=== PATIENT | female | born 1935 | race Caucasian/White ===

== ENCOUNTER → 2017-06-20 | Outpatient (CLI) | payer MEDICARE, OTHER | END | disposition home or self-care (01) | LOC: CFH 11:50 | PROVIDERS: ATTEND Family Medicine | DX: M48.07 Spinal stenosis, lumbosacral region (principal); M51.27 Other intervertebral disc displacement, lumbosacral region; I70.213 Atherosclerosis of native arteries of extremities with intermittent claudication, bilateral legs | CPT/HCPCS: 72148 ==

== ENCOUNTER → 2017-08-22 | Outpatient (CLI) | payer MEDICARE, OTHER | END | disposition home or self-care (01) | LOC: CFH 10:29 | PROVIDERS: ATTEND Physician Assistant Surgical | DX: M48.061 Spinal stenosis, lumbar region without neurogenic claudication (principal); M51.37 Other intervertebral disc degeneration, lumbosacral region | CPT/HCPCS: 72120; 72131 ==

== ENCOUNTER → 2017-10-16 | Outpatient (CLI) | payer MEDICARE, OTHER | END | disposition home or self-care (01) | LOC: RAD 15:19 | PROVIDERS: ATTEND Neurological Surgery | DX: M43.16 Spondylolisthesis, lumbar region (principal); M54.5 Low back pain | CPT/HCPCS: 72220 ==

== ENCOUNTER → 2017-11-24 | Outpatient (CLI) | payer MEDICARE, OTHER | END | disposition home or self-care (01) | LOC: CFH 15:17 | PROVIDERS: ATTEND Neurological Surgery | DX: Z01.812 Encounter for preprocedural laboratory examination (principal); R79.1 Abnormal coagulation profile; M48.062 Spinal stenosis, lumbar region with neurogenic claudication | CPT/HCPCS: 71046; 93005 ==

== ENCOUNTER → 2017-11-27 | Outpatient (CLI) | payer MEDICARE, OTHER | END | disposition home or self-care (01) | LOC: CFH 13:51 | PROVIDERS: ATTEND Neurological Surgery | DX: Z13.820 Encounter for screening for osteoporosis (principal); M85.88 Other specified disorders of bone density and structure, other site | CPT/HCPCS: 77080 ==

== ENCOUNTER → 2017-12-18 | Outpatient (CLI) | payer MEDICARE, OTHER | END | disposition home or self-care (01) | LOC: CFH 14:47 | PROVIDERS: ATTEND Neurological Surgery | DX: M51.37 Other intervertebral disc degeneration, lumbosacral region (principal); M43.26 Fusion of spine, lumbar region | CPT/HCPCS: 72110 ==

== ENCOUNTER 2018-01-06 14:39 | Emergency (ER) | payer MEDICARE, OTHER ==
[~2018-01-06] VITALS: Ht 170.2 cm; Wt 73.0 kg
[2018-01-06 15:06] LABS: BASOPHILS # (AUTO) 0.06 x10^3/uL (0-0.1); BASOPHILS % (AUTO) 1 % (0-1); EOSINOPHILS % (AUTO) 0 % (1-7); LYMPHOCYTES % (AUTO) 13 % (22-44); MD NO; MEAN CORPUSCULAR HEMOGLOBIN 31.3 pg (27.0-34.8); MEAN CORPUSCULAR HGB CONC 33.9 g/dL (32.4-35.8); MEAN CORPUSCULAR VOLUME 92.2 fL (80-100); MEAN PLATELET VOLUME 7.3 fL (7.4-10.4); MONOCYTES # (AUTO) 1.17 x10^3/uL (0.2-0.8); MONOCYTES % (AUTO) 14 % (2-9); NEUTROPHILS # (AUTO) 5.91 x10^3/uL (1.8-6.8); NEUTROPHILS % (AUTO) 72 % (42-75); PLATELET COUNT 455 x10^3/uL (130-400); RED BLOOD COUNT 3.99 x10^6/uL (3.82-5.3); RED CELL DISTRIBUTION WIDTH 15.4 % (9.6-15.2)
[2018-01-06 15:16] LABS: ALBUMIN 3.3 g/dL (3.4-5.0); ANION GAP 10 mmol/L (5-15); CALCIUM 8.7 mg/dL (8.5-10.1); CHLORIDE 105 mmol/L (98-107); CREATININE 0.88 mg/dL (0.55-1.02)
[2018-01-06 16:12] LABS: MICROSCOPIC AUTO
[2018-01-06 16:13] LABS: CULTURE INDICATED? YES
[2018-01-06 17:44] VITALS: BP 126/78
== END 2018-01-06 17:46 | disposition home or self-care (01) ==
LOC: ED 15:32
DX: M54.5 Low back pain (principal); M47.896 Other spondylosis, lumbar region; N30.01 Acute cystitis with hematuria
CPT/HCPCS: 36415; 72110; 80048; 81001; 82040; 85025; 87077; 87086; 87186; 99285

== ENCOUNTER → 2018-02-13 | Outpatient (CLI) | payer MEDICARE, OTHER ==
[~2018-02-13] MED LIST: GADOBUTROL 7.5 MMOL/7.5 ML PFS ONE
== END | disposition home or self-care (01) ==
LOC: RAD 13:38
PROVIDERS: ATTEND Neurological Surgery
DX: S32.018D Other fracture of first lumbar vertebra, subsequent encounter for fracture with routine healing (principal); S22.000D Wedge compression fracture of unspecified thoracic vertebra, subsequent encounter for fracture with routine healing; M43.16 Spondylolisthesis, lumbar region; X58.XXXD Exposure to other specified factors, subsequent encounter
CPT/HCPCS: 72158; A9585; 99157

== ENCOUNTER 2018-02-27 12:37 | Day surgery (SDC) | payer MEDICARE, OTHER ==
[~2018-02-27] VITALS: Ht 170.2 cm; Wt 68.2 kg
[2018-02-27] MEDS ORDERED: SODIUM CHLORIDE 0.9% 1,000 ML IV SCH (13:12)
[2018-02-27 13:13] VITALS: BP 138/91
[2018-02-27] MEDS ORDERED: LIDOCAINE-MPF 1%, 5ML ONE ×2 (14:57→16:02)
[2018-02-27] MEDS ORDERED: OMNIPAQUE 180 MG/ML, 10ML VIAL ONE (17:20)
[2018-02-27] MEDS ORDERED: INSTRUCTION SEE COMMENTS XX PRN (17:30)
== END 2018-02-27 18:20 | disposition home or self-care (01) ==
LOC: OUT 12:37 → 4NOR 16:47 → OUT 18:20
PROVIDERS: ATTEND Neurological Surgery
DX: M48.56XA Collapsed vertebra, not elsewhere classified, lumbar region, initial encounter for fracture (principal); M54.5 Low back pain; Z85.51 Personal history of malignant neoplasm of bladder; Z79.899 Other long term (current) drug therapy; Z98.890 Other specified postprocedural states
CPT/HCPCS: 62284; 72132; Q9965; G0378

== ENCOUNTER 2018-03-06 16:48 | Emergency (ER) | payer MEDICARE, OTHER ==
[~2018-03-06] VITALS: Ht 170.2 cm; Wt 70.0 kg
--- NOTE | 2018-03-06 17:20 | NUR ---
late entry for 1719. first contact with pt. pt c/o bilateral back pain from yesterday. pt states that pt has chronic back pain and had surgey before but pain gets worse from yesterday. pt denies v/d/fever/abd pain at this time. pt aox4. resps even and unlabored. neuro intact. pt has urethral catheter on arrival and site cd&i. bp and spo2 monitors in place. call light within reach. awaiting orders.
[2018-03-06] MEDS ORDERED: KETOROLAC 30 MG/1 ML ONE (18:20)
[2018-03-06] MEDS ORDERED: HYDROmorphone 2 MG/ML, 1ML ONE (18:20)
[2018-03-06 18:27] LABS: CULTURE INDICATED? YES; MICROSCOPIC INDICATED
[2018-03-06] MEDS: HYDROmorphone 2 MG/ML, 1ML IM ONE ×2 (18:28→18:46)
[2018-03-06] MEDS ORDERED: KETOROLAC 30 MG/1 ML IM ONE (18:30)
--- NOTE | 2018-03-06 18:36 | NUR ---
pt resting in [facility]. pt provided warm blanket. call light within reach.
--- NOTE | 2018-03-06 18:51 | NUR ---
BREAK RN: PT LAYING ON [place], HAD DISCUSSION WITH PT ABOUT NOT DRIVING AFTER RECEIVING NARCOTICS. PT STATES "I ONLY LIVE NOT EVEN 10 [address] AWAY." DISCUSSED WITH PT THAT WE CANNOT ADMINISTER ANY NARCOTICS KNOWING SHE WILL BE DRIVING. DISCUSSED IF SHE WERE IN AN ACCIDENT, SHE COULD BE CHARGED WITH DRIVING UNDER THE INFLUENCE. DISCUSSED IF THERE IS SOMEONE THAT CAN COME GET HER. PT DID PROVIDE THE NAME OF A FRIEND HERMILO [phone]. ALSO DISCUSSED GOING HOME IN A TAXI. PT STATES "I DONT KNOW HOW A TAXI WORKS." PT ALSO NOT SURE HOW MUCH IT WILL COST. PT ALSO AWARE THAT SHE COULD CALL HER FRIEND IN THE MORNING OR CALL ANOTHER TAXI IN TO COME BACK IN THE AM AND GET HER CAR. PT AGREEABLE TO CALLING A [facility]AXI FOR TRANSPORT HOME UPON [place]. PT MEDICATED FOR 2/10 PAIN. PT STATES, "IT WAS REALLY BAD TODAY. IT IS WORSE WHEN I TRY TO GET OUT OF BED AND MOVE AROUND."
[2018-03-06] MEDS ORDERED: CEFTRIAXONE 1,000 MG IM ONE (19:00)
--- NOTE | 2018-03-06 19:10 | NUR ---
REPORT TO NANCY AMBROCIO.
--- NOTE | 2018-03-06 19:27 | NUR ---
PT RESTING IN GURNEY AND WATCHING TV AT THIS TIME. PT PAIN LEVEL DECREASES 2/10 NOW. PT AOX4. RESPS EVEN AND UNLABORED. BP AND SPO2 MONITORS IN PLACE. CALL LIGHT WITHIN REACH.
[2018-03-06] MEDS ORDERED: CEFTRIAXONE 250 MG ONE (19:30)
[2018-03-06] MEDS ORDERED: CEFTRIAXONE 1,000 MG ONE (19:42)
[2018-03-06] MEDS ORDERED: LIDOCAINE-MPF 1%, 2ML ONE (19:42)
--- NOTE | 2018-03-06 20:00 | NUR ---
late entry for 1999: pt states chacon cath has been in place for 3 weeks. pt states she missed uro appt this week to get cath changed out. TENA Zamora notified. TENA Zamora instructed RN to change chacon catheter. report to break annabelle Whitman RN notified of need to change chacon cath. pt informed.
--- NOTE | 2018-03-06 20:43 | NUR ---
SEALS CATHETER REPLACED PER PROTOCOL. LEG BAG ATTACHED. PT TOLERATED WELL.
--- NOTE | 2018-03-06 21:04 | NUR ---
PT RESTING IN [facility]. BP AND APO2 MONITOR IN PLACE. CALL LIGHT WITHIN REACH. AWAITING DC.
[2018-03-06 21:35] VITALS: BP 146/70
--- NOTE | 2018-03-06 21:58 | NUR ---
pt given dc instructions and script. pt educated regarding rx for flexiril, omnicef and naprosyn. pt a&o, resps even and unlabored. pt able to ambulate independently and steadily. pt given cab voucher and taken to dc via wheelchair. pt left without incident in no acute distress.
== END 2018-03-06 21:50 | disposition home or self-care (01) ==
LOC: ED 18:09
DX: S32.019A Unspecified fracture of first lumbar vertebra, initial encounter for closed fracture (principal); S32.029A Unspecified fracture of second lumbar vertebra, initial encounter for closed fracture; S22.089A Unspecified fracture of T11-T12 vertebra, initial encounter for closed fracture; T83.511A Infection and inflammatory reaction due to indwelling urethral catheter, initial encounter; X58.XXXA Exposure to other specified factors, initial encounter; Y93.89 Activity, other specified; Y92.89 Other specified places as the place of occurrence of the external cause; Y99.8 Other external cause status
CPT/HCPCS: 81001; 87077; 87086; 87186; 96372; 99283; J0696; J1170; J1885

== ENCOUNTER → 2018-04-03 | Outpatient (CLI) | payer MEDICARE, OTHER ==
[2018-04-03 14:42] LABS: BASOPHILS # (AUTO) 0.01 x10^3/uL (0-0.1); BASOPHILS % (AUTO) 0 % (0-1); EOSINOPHILS # (AUTO) 0.03 x10^3/uL (0-0.4); EOSINOPHILS % (AUTO) 0 % (1-7); LYMPHOCYTES % (AUTO) 7 % (22-44); MD NO; MEAN CORPUSCULAR HEMOGLOBIN 29.5 pg (27.0-34.8); MEAN CORPUSCULAR HGB CONC 32.9 g/dL (32.4-35.8); MEAN CORPUSCULAR VOLUME 89.7 fL (80-100); MEAN PLATELET VOLUME 7.7 fL (7.4-10.4); MONOCYTES # (AUTO) 1.05 x10^3/uL (0.2-0.8); MONOCYTES % (AUTO) 11 % (2-9); NEUTROPHILS # (AUTO) 7.85 x10^3/uL (1.8-6.8); NEUTROPHILS % (AUTO) 82 % (42-75); PLATELET COUNT 365 x10^3/uL (130-400); RED BLOOD COUNT 4.79 x10^6/uL (3.82-5.3)
[2018-04-03 14:53] LABS: PROTHROMBIN TIME 10.6 Seconds (9.6-11.5)
[2018-04-03 14:55] LABS: ALANINE AMINOTRANSFERASE 23 U/L (12-78); ALBUMIN 3.7 g/dL (3.4-5.0); ANION GAP 8 mmol/L (5-15); CALCIUM 9.3 mg/dL (8.5-10.1); CHLORIDE 105 mmol/L (98-107); CREATININE 0.98 mg/dL (0.55-1.02)
[2018-04-03 14:56] LABS: ALKALINE PHOSPHATASE 127 U/L (45-117); BILIRUBIN,TOTAL 0.6 mg/dL (0.2-1.0); TOTAL PROTEIN 7.7 g/dL (6.4-8.2)
[2018-04-03 15:36] LABS: CULTURE INDICATED? YES; MICROSCOPIC INDICATED
== END | disposition home or self-care (01) ==
LOC: RAD 14:04
PROVIDERS: ATTEND Specialist
DX: S32.020A Wedge compression fracture of second lumbar vertebra, initial encounter for closed fracture (principal); S33.140A Subluxation of L4/L5 lumbar vertebra, initial encounter; X58.XXXA Exposure to other specified factors, initial encounter; Y93.89 Activity, other specified; Y92.89 Other specified places as the place of occurrence of the external cause; Y99.8 Other external cause status
CPT/HCPCS: 36415; 72100; 80053; 81001; 85025; 85610; 85730; 87077; 87086; 87186

== ENCOUNTER → 2018-04-07 | Outpatient (CLI) | payer MEDICARE, OTHER | END | disposition home or self-care (01) | LOC: RAD 14:31 | PROVIDERS: ATTEND Neurological Surgery | DX: Z01.812 Encounter for preprocedural laboratory examination (principal); S22.069A Unspecified fracture of T7-T8 vertebra, initial encounter for closed fracture; S22.079A Unspecified fracture of T9-T10 vertebra, initial encounter for closed fracture; S22.089A Unspecified fracture of T11-T12 vertebra, initial encounter for closed fracture; X58.XXXA Exposure to other specified factors, initial encounter; Y93.89 Activity, other specified; Y92.89 Other specified places as the place of occurrence of the external cause; Y99.8 Other external cause status; Z79.1 Long term (current) use of non-steroidal anti-inflammatories (NSAID) | CPT/HCPCS: 71046 ==

== ENCOUNTER → 2018-09-10 | Outpatient (CLI) | payer MEDICARE, OTHER | END | disposition home or self-care (01) | LOC: CFH 12:33 | PROVIDERS: ATTEND Physical Medicine & Rehabilitation | DX: S22.089A Unspecified fracture of T11-T12 vertebra, initial encounter for closed fracture (principal); S32.029A Unspecified fracture of second lumbar vertebra, initial encounter for closed fracture; M48.061 Spinal stenosis, lumbar region without neurogenic claudication; M48.04 Spinal stenosis, thoracic region; M43.14 Spondylolisthesis, thoracic region; M47.814 Spondylosis without myelopathy or radiculopathy, thoracic region; M43.26 Fusion of spine, lumbar region; G95.89 Other specified diseases of spinal cord; Z98.890 Other specified postprocedural states; X58.XXXA Exposure to other specified factors, initial encounter; Y93.89 Activity, other specified; Y92.89 Other specified places as the place of occurrence of the external cause; Y99.8 Other external cause status | CPT/HCPCS: 72131; 72146; 72148 ==

== ENCOUNTER → 2018-09-21 | Outpatient (CLI) | payer MEDICARE, OTHER | END | disposition home or self-care (01) | LOC: CFH 15:00 | PROVIDERS: ATTEND Neurological Surgery | DX: S22.009A Unspecified fracture of unspecified thoracic vertebra, initial encounter for closed fracture (principal); S32.009A Unspecified fracture of unspecified lumbar vertebra, initial encounter for closed fracture; X58.XXXA Exposure to other specified factors, initial encounter; Y93.89 Activity, other specified; Y92.89 Other specified places as the place of occurrence of the external cause; Y99.8 Other external cause status | CPT/HCPCS: 72110 ==

== ENCOUNTER 2018-09-24 16:23 | Outpatient (CLI) | payer MEDICARE, OTHER | END 2018-09-24 23:59 | disposition home or self-care (01) | LOC: CFH 16:23 | PROVIDERS: ATTEND Neurological Surgery | DX: M54.16 Radiculopathy, lumbar region (principal); M48.061 Spinal stenosis, lumbar region without neurogenic claudication; Z98.890 Other specified postprocedural states | CPT/HCPCS: 73523 ==

== ENCOUNTER → 2019-02-11 | Outpatient (CLI) | payer MEDICARE, OTHER | END | disposition home or self-care (01) | LOC: RAD 14:45 | PROVIDERS: ATTEND Neurological Surgery | DX: M50.323 Other cervical disc degeneration at C6-C7 level (principal); M48.02 Spinal stenosis, cervical region; M53.2X2 Spinal instabilities, cervical region; M51.26 Other intervertebral disc displacement, lumbar region; M48.54XA Collapsed vertebra, not elsewhere classified, thoracic region, initial encounter for fracture | CPT/HCPCS: 72050; 72072; 72110 ==

== ENCOUNTER → 2019-04-09 | Outpatient (CLI) | payer MEDICARE, OTHER | END | disposition home or self-care (01) | LOC: RAD 15:07 | PROVIDERS: ATTEND Neurological Surgery | DX: M47.812 Spondylosis without myelopathy or radiculopathy, cervical region (principal); M43.8X5 Other specified deforming dorsopathies, thoracolumbar region; M40.294 Other kyphosis, thoracic region; M40.46 Postural lordosis, lumbar region; M43.26 Fusion of spine, lumbar region; M25.78 Osteophyte, vertebrae; M48.02 Spinal stenosis, cervical region; M81.0 Age-related osteoporosis without current pathological fracture; M26.220 Open anterior occlusal relationship; M43.12 Spondylolisthesis, cervical region; M43.17 Spondylolisthesis, lumbosacral region | CPT/HCPCS: 72082 ==

== ENCOUNTER → 2020-10-19 | Outpatient (CLI) | payer MEDICARE, OTHER | END | disposition home or self-care (01) | LOC: CFH 11:09 | PROVIDERS: ATTEND Neurological Surgery | DX: M47.817 Spondylosis without myelopathy or radiculopathy, lumbosacral region (principal); M48.56XA Collapsed vertebra, not elsewhere classified, lumbar region, initial encounter for fracture; M51.36 Other intervertebral disc degeneration, lumbar region; M48.07 Spinal stenosis, lumbosacral region; M48.05 Spinal stenosis, thoracolumbar region | CPT/HCPCS: 72110; 72148 ==